=== PATIENT | male | born 1955 | race Caucasian/White ===

== ENCOUNTER 2020-12-07 10:32 | Inpatient (IN) | payer MEDICARE ==
[2020-12-07] MEDS ORDERED: Albuterol/Ipratropium 3.0-0.5 MG/3 ML Neb Soln NEB ONE (11:11)
--- NOTE | 2020-12-07 11:19 | EDM.PDOC ---
<Jorge LangelaFredy madrid Dot - Last Filed: 12/08/20 07:17> ED HPI GENERAL MEDICAL PROBLEM - General Chief Complaint: Respiratory Problem Stated Complaint: SOB Time Seen by Provider: 12/07/20 11:05 - Related Data Allergies Allergy/AdvReac Type Severity Reaction Status Date / Time No Known Allergies Allergy Verified 12/07/20 11:24 Home Meds: Home Meds NK [No Known Home Meds] 12/07/20 [History] Departure - Departure Disposition: Admitted As Inpatient 64 Clinical Impression: Emphysema lung - Discharge Information <Anupama Navarro - Last Filed: 12/08/20 07:21> ED HPI GENERAL MEDICAL PROBLEM - General Source of Information: Reports: Patient, Family History Limitations: Reports: No Limitations - History of Present Illness INITIAL COMMENTS - FREE TEXT/NARRATIVE: 65 year old male with unknown previous medical history due to not doctoring in over 10 years, arrives with complaints of shortness of breath. He reports that for the last "few week" he has had increasing shortness of breath and increasing activity intolerance. Family reports that he has been borrowing inhaler from friend and borrowing oxygen from father. He also notes some bilateral pedal edema and fatigue. Denies chest pain, fever, or recent illness or injury. States that he is a 1 pack a day smoker, and takes no medications daily. He has not had covid vaccines. He arrived with SPO2 saturations in the 70s on RA. Onset: Gradual Duration: Week(s):, Getting Worse Location: Reports: Other (shortness of breath) Severity: Severe Improves with: Reports: Rest Worsens with: Reports: Movement Context: Reports: Activity Associated Symptoms: Reports: No Other Symptoms ED ROS GENERAL - Review of Systems Review Of Systems: See Below Constitutional: Reports: Weakness. Denies: Fever, Chills, Diaphoresis HEENT: Reports: No Symptoms Respiratory: Reports: Shortness of Breath (severe shortness of breath with activity, reports almost no tolerance left, arrived with SPO2 saturations in the 70s on RA.), Wheezing (wheezing heard throughout lung blackman. Inspiratory and expiratory), Cough. Denies: Pleuritic Chest Pain Cardiovascular: Reports: Edema (trace pedal edema present and has developed over the last week- per family. ). Denies: Chest Pain Endocrine: Reports: No Symptoms GI/Abdominal: Denies: Abdominal Pain : Reports: No Symptoms Musculoskeletal: Reports: No Symptoms Skin: Reports: No Symptoms Neurological: Denies: Confusion, Dizziness Psychiatric: Reports: No Symptoms Hematologic/Lymphatic: Reports: No Symptoms Immunologic: Reports: No Symptoms ED EXAM, GENERAL - Physical Exam Exam: See Below Free Text/Narrative:: Christian is resting on cart sitting in the up right position, family is at bedside. Respirations are mildly labored and regular, he is alert and oriented, skin is warm and dry. afebrile. Appears comfortable on 3L via NC at this time. Wheezing heard on auscultation in all lung blackman. Abdomen in flat and non tender. trace edema to bilateral lower extremities. Exam Limited By: No Limitations General Appearance: Alert, Mild Distress Nose: No Blood Throat/Mouth: Normal Lips, Normal Voice, No Airway Compromise Head: Atraumatic Neck: Normal Inspection Respiratory/Chest: Respiratory Distress (mild respiratory distress, arrived with SPO2 sats in the 70s, placed on 3 L NC and now SPO2 saturations are above 94%), Wheezing Cardiovascular: Normal Peripheral Pulses, Regular Rate, Rhythm GI/Abdominal: Soft, Non-Tender (Male) Exam: Deferred Rectal (Males) Exam: Deferred Back Exam: Normal Inspection, Full Range of Motion Extremities: Pedal Edema. No: Leg Pain, Increased Warmth, Redness Neurological: Alert, Oriented, Normal Cognition. No: Confused, Disoriented Psychiatric: Normal Affect Skin Exam: Warm, Dry, Intact. No: Diaphoretic, Rash Course - Vital Signs Text/Narrative:: Duo neb ordered, chest xray, CBC, CMP, Troponin, and D Dimer completed. Covid test sent as well. Patient and family member agree with the plan of care at this time. Last Recorded V/S: Last Vital Signs Temp 35.5 C L 12/08/20 03:00 Pulse 77 12/08/20 03:00 Resp 18 12/08/20 03:00 BP 130/69 12/08/20 03:00 Pulse Ox 94 L 12/08/20 03:00 - Orders/Labs/Meds Orders: Active Orders 24 hr Category Date Time Status RT Aerosol Therapy [RC] ASDIRECTED Care 12/07/20 11:12 Active Sodium Chloride 0.9% [Normal Saline] 1,000 ml Med 12/07/20 13:30 Active IV ASDIRECTED Medication Orders Albuterol/Ipratropium (Albuterol/Ipratropium 3.0-0.5 Mg/3 Ml Neb Soln) 3 ml NEB Q4H [facility] Last Admin: 12/08/20 06:18 Dose: Not Given Documented by: Admin: 12/08/20 00:29 Dose: Not Given Documented by: Admin: 12/07/20 20:03 Dose: 3 ml Documented by: Admin: 12/07/20 18:51 Dose: Not Given Documented by: TOM Amlodipine Besylate (Amlodipine 5 Mg Tab) 5 mg PO DAILY [facility] Sodium Chloride (Normal Saline) 1,000 mls @ 150 mls/hr IV ASDIRECTED [facility] Last Admin: 12/08/20 03:42 Dose: 150 mls/hr Documented by: Infusion: 12/08/20 03:42 Dose: 150 mls/hr Documented by: Admin: 12/07/20 21:21 Dose: 150 mls/hr Documented by: Infusion: 12/07/20 20:24 Dose: 150 mls/hr Documented by: Admin: 12/07/20 13:43 Dose: 150 mls/hr Documented by: PREILOR Lisinopril (Lisinopril 10 Mg Tab) 10 mg PO DAILY [facility] Methylprednisolone Sodium Succinate (Methylprednisolone Sodium Succinate 40 Mg/1 Ml Sdv) 60 mg IVPUSH Q12H [facility] Last Admin: 12/08/20 00:26 Dose: 60 mg Documented by: FAVIAN Labs: Laboratory Tests 12/07/20 12/07/20 12/07/20 Range/Units 11:26 11:26 11:26 WBC 7.4 (4.5-11.0) K/uL RBC 5.08 (4.30-5.90) M/uL Hgb 14.4 (12.0-15.0) g/dL Hct 48.1 (40.0-54.0) % MCV 95 (80-98) fL MCH 28 (27-31) pg MCHC 30 L (32-36) % Plt Count 220 (150-400) K/uL Neut % (Auto) 74.7 H (36-66) % Lymph % (Auto) 14.3 L (24-44) % Twiggs % (Auto) 9.7 H (2-6) % Eos % (Auto) 0.9 L (2-4) % Baso % (Auto) 0.4 (0-1) % D-Dimer, Quantitative 899.37 H (0.0-500.0) ng/mL Sodium 142 (140-148) mmol/L Potassium 4.4 (3.6-5.2) mmol/L Chloride 103 (100-108) mmol/L Carbon Dioxide 37 H (21-32) mmol/L Anion Gap 6.4 (5.0-14.0) mmol/L BUN 13 (7-18) mg/dL Creatinine 0.9 (0.8-1.3) mg/dL Est Cr Clr Drug Dosing 81.76 mL/min Estimated GFR (MDRD) > 60 (>60) Glucose 101 (74-106) mg/dL Calcium 7.8 L (8.5-10.1) mg/dL Total Bilirubin 0.5 (0.2-1.0) mg/dL AST 34 (15-37) U/L ALT 63 (12-78) U/L Alkaline Phosphatase 88 (46-116) U/L Troponin I 0.017 (0.000-0.056) ng/mL Total Protein 5.8 L (6.4-8.2) g/dL Albumin 2.7 L (3.4-5.0) g/dL Globulin 3.1 (2.3-3.5) g/dL Albumin/Globulin Ratio 0.9 L (1.2-2.2) SARS CoV-2 RNA Rapid RIRI 12/07/20 Range/Units 11:37 WBC (4.5-11.0) K/uL RBC (4.30-5.90) M/uL Hgb (12.0-15.0) g/dL Hct (40.0-54.0) % MCV (80-98) fL MCH (27-31) pg MCHC (32-36) % Plt Count (150-400) K/uL Neut % (Auto) (36-66) % Lymph % (Auto) (24-44) % Twiggs % (Auto) (2-6) % Eos % (Auto) (2-4) % Baso % (Auto) (0-1) % D-Dimer, Quantitative (0.0-500.0) ng/mL Sodium (140-148) mmol/L Potassium (3.6-5.2) mmol/L Chloride (100-108) mmol/L Carbon Dioxide (21-32) mmol/L Anion Gap (5.0-14.0) mmol/L BUN (7-18) mg/dL Creatinine (0.8-1.3) mg/dL Est Cr Clr Drug Dosing mL/min Estimated GFR (MDRD) (>60) Glucose (74-106) mg/dL Calcium (8.5-10.1) mg/dL Total Bilirubin (0.2-1.0) mg/dL AST (15-37) U/L ALT (12-78) U/L Alkaline Phosphatase (46-116) U/L Troponin I (0.000-0.056) ng/mL Total Protein (6.4-8.2) g/dL Albumin (3.4-5.0) g/dL Globulin (2.3-3.5) g/dL Albumin/Globulin Ratio (1.2-2.2) SARS CoV-2 RNA Rapid RIRI Negative Meds: Medications Generic Name Dose Route Start Last Admin Trade Name Freq PRN Reason Stop Dose Admin Albuterol/Ipratropium 3 ml 12/07/20 16:30 12/08/20 06:18 Albuterol/Ipratropium 3.0-0.5 Mg/3 Ml Neb Soln NEB Not Given Q4H [facility] Amlodipine Besylate 5 mg 12/08/20 09:00 Amlodipine 5 Mg Tab PO DAILY [facility] Sodium Chloride 1,000 mls @ 150 mls/hr 12/07/20 13:30 12/08/20 03:42 Normal Saline IV 150 mls/hr ASDIRECTED [facility] Administration Lisinopril 10 mg 12/08/20 09:00 Lisinopril 10 Mg Tab PO DAILY [facility] Methylprednisolone Sodium Succinate 60 mg 12/07/20 23:00 12/08/20 00:26 Methylprednisolone Sodium Succinate 40 Mg/1 Ml Sdv IVPUSH 60 mg Q12H [facility] Administration Discontinued Medications Generic Name Dose Route Start Last Admin Trade Name Freq PRN Reason Stop Dose Admin Albuterol/Ipratropium 3 ml 12/07/20 11:11 12/07/20 11:27 Albuterol/Ipratropium 3.0-0.5 Mg/3 Ml Neb Soln NEB 12/07/20 11:12 3 ml ONETIME ONE Administration Formoterol Fumarate 12 mcg 12/07/20 16:15 Formoterol 12 Mcg Inhalant Cap Kit Of 12 INH Q12HR [facility] Methylprednisolone Sodium Succinate 125 mg 12/07/20 13:24 12/07/20 13:44 Methylprednisolone Sodium Succinate 125 Mg/2 Ml Sdv IVPUSH 12/07/20 13:25 125 mg ONETIME ONE Administration Tiotropium Gentry 0 gm 12/07/20 16:15 Tiotropium Gentry 4 Gm Inhalation Russell (2.5mcg/1 Dose; 10 Doses) INH DAILY [facility] - Re-Assessments/Exams Free Text/Narrative Re-Assessment/Exam: 12/07/20 13:29 Due to moderate emphysema noted on chest xray, admission suggested, patient agreed with some coaxing. He is still requiring 3 L NC and does desaturate with activity. Plan for admission with IV Solumedrol at this time. Departure - Departure Time of Disposition: 16:14 Condition: Good - My Orders Last 24 Hours: My Active Orders 12/07/20 11:12 RT Aerosol Therapy [RC] ASDIRECTED - Assessment/Plan Last 24 Hours: My Active Orders 12/07/20 11:12 RT Aerosol Therapy [RC] ASDIRECTED Attestation - Student - Attestation Statement Attestation Statement: I personally performed or re-performed the physical examination and medical decision making. I have verified all student documentation or findings, including history, physical exam and/or medical decision making.
--- NOTE | 2020-12-07 12:52 | CR ---
CHEST: 2 view CLINICAL HISTORY:SOB COMPARISON:None FINDINGS: Lungs are hyperaerated. There are some scattered pleural parenchymal scarring. The heart size, pulmonary vascularity and hilar structures are normal. No infiltrate effusion or pneumothorax is seen. IMPRESSION: No acute cardiopulmonary process. Moderate emphysematous changes
[2020-12-07] MEDS ORDERED: methylPREDNISolone Sodium Succinate 125 MG/2 ML SDV IVPUSH ONE (13:24)
[2020-12-07] MEDS: Sodium Chloride 0.9% 1,000 ML IV SCH ×2 (13:43→21:21)
[2020-12-07] MEDS ORDERED: Formoterol 12 MCG Inhalant Cap Kit of 12 INH SCH (16:15)
[2020-12-07] MEDS ORDERED: Tiotropium Bromide 4 GM Inhalation Spray (2.5mcg/1 dose; 10 doses) INH SCH (16:15)
--- NOTE | 2020-12-07 18:12 | PCM.HP.2 ---
H&P History of Present Illness - General Date of Service: 12/07/20 Admit Problem/Dx: Admission Diagnosis/Problem Admission Diagnosis/Problem COPD, Severe chronic obstructive pulmonary disease Source of Information: Patient History Limitations: Reports: No Limitations - History of Present Illness Initial Comments - Free Text/Narative: Mr. Ojeda is a 65-year-old white male who presents with shortness of breath. He states that over the past couple of years he has had increasing shortness of breath however over the past couple of weeks it has worsened significantly. He states that he has a cough regularly especially when he lays down. He states that he has to use 3 pillows at night in order to breathe. He also states that he has frequent nighttime awakenings due to dyspnea. He is a 1 pack/day smoker. He states that he had been using his girlfriends inhalers and his girlfriend's fathers oxygen at home due to the dyspnea. He does not like to go to the doctors and he has not been to a doctor in well over a decade. He is not cu rrently on any medications as he is not been to a doctor in a very long time. In the ED he was noted to be hypertensive with a blood pressure initially of 162/105. On room air his oxygen saturations were in the 70s. He was not tachypneic and had a regular rate and rhythm. A chest x-ray was done that showed hyperinflated lungs with scattered pleural-parenchymal scarring. He was given treatment with duo nebs, IV steroids, and started on supplemental oxygen. He will be admitted for supplemental oxygen, IV steroids, and nebulizer treatments. Because he does not enjoy being in a medical setting I did let him know that he will likely be here for about 2 to 3 days. I explained to him that I would be starting him on inhalers for COPD and that he would likely need oxygen when he leaves. I did state that this oxygen may be temporary as this is the first time he has ever been treated for COPD. I did explain to him that he will need follow-up with a computed tomography scanner operator including pulmonary function tests and he agreed to this. - Related Data Allergies/Adverse Reactions: Allergies Allergy/AdvReac Type Severity Reaction Status Date / Time No Known Allergies Allergy Verified 12/07/20 11:24 Home Medications: Home Meds NK [No Known Home Meds] 12/07/20 [History] Past Medical History Musculoskeletal History: Reports: Arthritis, Neck Pain, Chronic - Infectious Disease History Infectious Disease History: Reports: Chicken Pox, Measles, Mumps Social & Family History - Tobacco Use Tobacco Use Status *Q: Current Every Day Tobacco User Years of Tobacco use: 50 Packs/Tins Daily: 1 - Caffeine Use Caffeine Use: Reports: Energy Drinks - Recreational Drug Use Recreational Drug Use: Yes Recreational Drug Type: Reports: Marijuana/Hashish Recreational Drug Use Frequency: Weekly H&P Review of Systems - Review of Systems: Review Of Systems: See Below General: Reports: Weakness. Denies: Fever, Chills, Weight Loss HEENT: Reports: Headaches. Denies: Sinus Congestion, Visual Changes (Related to chronic neck pain) Pulmonary: Reports: Shortness of Breath, Wheezing, Cough, Sputum Cardiovascular: Reports: Dyspnea on Exertion, Orthopnea, PND. Denies: Chest Pain, Palpitations, Edema, Syncope Gastrointestinal: Reports: No Symptoms. Denies: Abdominal Pain, Anorexia, Constipation, Diarrhea Genitourinary: Reports: No Symptoms. Denies: Dysuria, Frequency, Pain Musculoskeletal: Reports: Neck Pain (Chronic) Skin: Reports: No Symptoms Psychiatric: Reports: No Symptoms. Denies: Confusion Neurological: Reports: No Symptoms, Headache. Denies: Confusion, Dizziness Hematologic/Lymphatic: Reports: No Symptoms Exam - Exam Exam: See Below - Vital Signs Vital Signs: Last Vital Signs Temp 97.9 F 12/07/20 11:22 Pulse 88 12/07/20 13:49 Resp 16 12/07/20 13:49 BP 164/102 H 12/07/20 13:49 Pulse Ox 93 L 12/07/20 13:49 Weight: 160 lb - Exam Quality Assessment: Supplemental Oxygen General: Alert, Oriented, Cooperative, Mild Distress HEENT: PERRLA, EOMI, Hearing Intact, Mucosa Moist & Bessie, Nares Patent Neck: Supple, Trachea Midline Lungs: Wheezing (In bilateral lung blakcman) Cardiovascular: Regular Rate, Regular Rhythm GI/Abdominal Exam: Normal Bowel Sounds, Soft, Non-Tender, No Distention Back Exam: Normal Inspection, Other (He does have a 1 to 1/2 cm sebaceous cyst on the center upper back) Extremities: Normal Inspection, Non-Tender, No Pedal Edema Skin: Warm, Dry, Intact Neuro Extensive - Mental Status: Alert, Oriented x3, Normal Mood/Affect, Normal Cognition, Memory Intact Psychiatric: Alert, Normal Affect, Normal Mood - Patient Data Lab Results Last 24 hrs: Laboratory Results - last 24 hr 12/07/20 12/07/20 12/07/20 Range/Units 11:26 11:26 11:26 WBC 7.4 (4.5-11.0) K/uL RBC 5.08 (4.30-5.90) M/uL Hgb 14.4 (12.0-15.0) g/dL Hct 48.1 (40.0-54.0) % MCV 95 (80-98) fL MCH 28 (27-31) pg MCHC 30 L (32-36) % Plt Count 220 (150-400) K/uL Neut % (Auto) 74.7 H (36-66) % Lymph % (Auto) 14.3 L (24-44) % Gove % (Auto) 9.7 H (2-6) % Eos % (Auto) 0.9 L (2-4) % Baso % (Auto) 0.4 (0-1) % D-Dimer, Quantitative 899.37 H (0.0-500.0) ng/mL Sodium 142 (140-148) mmol/L Potassium 4.4 (3.6-5.2) mmol/L Chloride 103 (100-108) mmol/L Carbon Dioxide 37 H (21-32) mmol/L Anion Gap 6.4 (5.0-14.0) mmol/L BUN 13 (7-18) mg/dL Creatinine 0.9 (0.8-1.3) mg/dL Est Cr Clr Drug Dosing 81.76 mL/min Estimated GFR (MDRD) > 60 (>60) Glucose 101 (74-106) mg/dL Calcium 7.8 L (8.5-10.1) mg/dL Total Bilirubin 0.5 (0.2-1.0) mg/dL AST 34 (15-37) U/L ALT 63 (12-78) U/L Alkaline Phosphatase 88 (46-116) U/L Troponin I 0.017 (0.000-0.056) ng/mL Total Protein 5.8 L (6.4-8.2) g/dL Albumin 2.7 L (3.4-5.0) g/dL Globulin 3.1 (2.3-3.5) g/dL Albumin/Globulin Ratio 0.9 L (1.2-2.2) SARS CoV-2 RNA Rapid RIRI 12/07/20 Range/Units 11:37 WBC (4.5-11.0) K/uL RBC (4.30-5.90) M/uL Hgb (12.0-15.0) g/dL Hct (40.0-54.0) % MCV (80-98) fL MCH (27-31) pg MCHC (32-36) % Plt Count (150-400) K/uL Neut % (Auto) (36-66) % Lymph % (Auto) (24-44) % Gove % (Auto) (2-6) % Eos % (Auto) (2-4) % Baso % (Auto) (0-1) % D-Dimer, Quantitative (0.0-500.0) ng/mL Sodium (140-148) mmol/L Potassium (3.6-5.2) mmol/L Chloride (100-108) mmol/L Carbon Dioxide (21-32) mmol/L Anion Gap (5.0-14.0) mmol/L BUN (7-18) mg/dL Creatinine (0.8-1.3) mg/dL Est Cr Clr Drug Dosing mL/min Estimated GFR (MDRD) (>60) Glucose (74-106) mg/dL Calcium (8.5-10.1) mg/dL Total Bilirubin (0.2-1.0) mg/dL AST (15-37) U/L ALT (12-78) U/L Alkaline Phosphatase (46-116) U/L Troponin I (0.000-0.056) ng/mL Total Protein (6.4-8.2) g/dL Albumin (3.4-5.0) g/dL Globulin (2.3-3.5) g/dL Albumin/Globulin Ratio (1.2-2.2) SARS CoV-2 RNA Rapid RIRI Negative Result Diagrams: 12/07/20 11:26 12/07/20 11:26 Sepsis Event Note - Evaluation Sepsis Screening Result: No Definite Risk - Focused Exam Vital Signs: Vital Signs Temp Pulse Resp BP Pulse Ox 12/07/20 13:49 88 16 164/102 H 93 L 12/07/20 12:20 88 18 162/105 H 95 12/07/20 11:22 97.9 F 94 21 H 164/100 H 93 L 12/07/20 11:13 88 15 162/105 H 96 12/07/20 10:51 93 L 12/07/20 10:49 97.9 F 94 21 H 164/100 H 70 L - Problem List (1) Severe chronic obstructive pulmonary disease SNOMED Code(s): 803817052 ICD Code: J44.9 - CHRONIC OBSTRUCTIVE PULMONARY DISEASE, UNSPECIFIED Status: Acute Current Visit: Yes (2) Hypertension SNOMED Code(s): 60007792 ICD Code: I10 - ESSENTIAL (PRIMARY) HYPERTENSION Status: Acute Current Visit: Yes Problem List Initiated/Reviewed/Updated: Yes Orders Last 24hrs: Active Orders 24 hr Category Date Time Status Patient Status [ADT] Routine ADT 12/07/20 15:59 Active Ambulate [RC] QID Care 12/07/20 15:59 Active Oxygen Therapy [RC] PRN Care 12/07/20 15:59 Active Pulse Oximetry [RC] CONTINUOUS Care 12/07/20 16:00 Active RT Aerosol Therapy [RC] ASDIRECTED Care 12/07/20 11:12 Active VTE/DVT Education [RC] Per Unit Routine Care 12/07/20 15:59 Active Vital Signs [RC] Q4H Care 12/07/20 15:59 Active Regular Diet [DIET] Diet 12/07/20 Dinner Active Albuterol/Ipratropium [DuoNeb 3.0-0.5 MG/3 ML] Med 12/07/20 16:30 Active 3 ml NEB Q4H Sodium Chloride 0.9% [Normal Saline] 1,000 ml Med 12/07/20 13:30 Active IV ASDIRECTED Tiotropium BR/Olodaterol HCL [Stiolto Respimat] Med 12/07/20 16:30 Active See Dose Instructions INH DAILY@0700 Sequential Compression Device [OM.PC] Per Unit Routine Oth 12/07/20 16:00 Ordered Resuscitation Status Routine Resus Stat 12/07/20 15:59 Ordered Medication Orders Albuterol/Ipratropium (Albuterol/Ipratropium 3.0-0.5 Mg/3 Ml Neb Soln) 3 ml NEB Q4H [facility] Sodium Chloride (Normal Saline) 1,000 mls @ 150 mls/hr IV ASDIRECTED [facility] Last Admin: 12/07/20 13:43 Dose: 150 mls/hr Documented by: PREILOR Assessment/Plan Comment:: Worsening COPD- -Requiring supplemental oxygen, titrate to an SPO2 of 94% -DuoNebs every 4 scheduled, will change to as needed when he is no longer whe ezing -Solu-Medrol 60 mg, will taper as improvement is shown -Start Stiolto -Will likely continue on Stiolto outpatient as long is inhalers covered by insurance -Will need follow-up with pulmonology for pulmonary function tests -I also anticipate that he may need home oxygen though probably temporarily until he is on adequate medication Hypertensionon admission BP 162/105 -I suspect a component of pulmonary hypertension so I do not want to initiate treatment with a diuretic -He is 40/35 above goal blood pressure, I would like his blood pressure to eventually be less than 120/80 -Will begin amlodipine 5 mg, and lisinopril 10 mg Tobacco abuse -I have counseled him on quitting tobacco, will continue Plan: We will treat with duo nebs and steroids until wheezing has subsided. We will have to adjust blood pressure medications as indicated. Will need to set up with a PCP outpatient and have follow-up with a computed tomography scanner operator for pulmonary function test. VTE prophylaxis: Not indicated (not elderly, no history of DVT/PE, not critically ill, no history of stroke, no CHF, no active cancer, no acute respiratory failure, no recent surgery or trauma, no obesity, no hormonal therapy), will encourage mobility GI prophylaxis: Not indicated Diet: Regular Admission status: Patient will be admitted to inpatient status, expect at least a 2 night hospital stay for evaluation and management of problems outlined above. At the time of admission I do not reasonably expect the evaluation and management of this problem will require more than a 96-hour hospital stay. Yelena Vela DO - Mortality Measure Prognosis:: Good
[2020-12-07] MEDS: Albuterol/Ipratropium 3.0-0.5 MG/3 ML Neb Soln NEB SCH ×2 (18:51→20:03)
[2020-12-07] MEDS: Tiotropium BR/Olodaterol HCL 4 GM Inhalation Spray 2.5mcg/1 dose; 10 doses INH SCH (19:23)
[2020-12-07] MEDS ORDERED: methylPREDNISolone Sodium Succinate 40 MG/1 ML SDV IVPUSH SCH (23:00)
[2020-12-08] MEDS: Albuterol/Ipratropium 3.0-0.5 MG/3 ML Neb Soln NEB SCH ×3 (00:29→07:53)
[2020-12-08] MEDS: Sodium Chloride 0.9% 1,000 ML IV SCH (03:42)
[2020-12-08] MEDS: Tiotropium BR/Olodaterol HCL 4 GM Inhalation Spray 2.5mcg/1 dose; 10 doses INH SCH (07:53)
[2020-12-08] MEDS ORDERED: amLODIPine 5 MG Tab PO SCH (09:00)
[2020-12-08] MEDS ORDERED: Lisinopril 10 MG Tab PO SCH (09:00)
[2020-12-08] MEDS ORDERED: methylPREDNISolone Sodium Succinate 125 MG/2 ML SDV IVPUSH SCH (11:00)
[2020-12-08] MEDS ORDERED: Albuterol/Ipratropium 3.0-0.5 MG/3 ML Neb Soln NEB SCH (11:00)
--- NOTE | 2020-12-09 18:55 | PCM.DCSUM1 ---
Discharge Summary - Hospital Course Free Text/Narrative:: is a 65-year-old white male who presented for shortness of breath. He had been having shortness of breath that had been worsening over the past couple of weeks. He states that he has had breathing troubles for years and is a 1 pack/day smoker. In the ED he had been noted to be hypertensive and hypoxic requiring supplemental oxygen chest x-ray revealed that he had emphysematous lungs. He had not been to a doctor in over a decade at the time of admission. He stated that he did not like being in the medical setting. While here he was treated with duo nebs, IV steroids, supplemental oxygen, and inhalers. By the morning after admission he was feeling better and wanted to get prescriptions to be treated outpatient. He agreed to get a PCP which was set up with Dr. Majano. He will also need follow-up with a public service officer for pulmonary function tests and he was counseled on this. He did still have some wheezing in the lungs on the day of discharge. He stated that he would continue to take nebulizer treatments, and used home oxygen until he was reevaluated by a public service officer. Diagnosis: Stroke: No Modified [place] Scale: Slight Disable;Unable to Carry Out Prev Act.Able to Look After Affairs Modified [place] Scale Score: 2 - Discharge Data Discharge Date: 12/08/20 Discharge Disposition: Home, Self-Care 01 Condition: Good - Referral to Home Health Date of Face to Face Encounter: 12/08/20 Primary Care Physician: PCP None - Discharge Diagnosis/Problem(s) (1) Severe chronic obstructive pulmonary disease SNOMED Code(s): 542684544 ICD Code: J44.9 - CHRONIC OBSTRUCTIVE PULMONARY DISEASE, UNSPECIFIED Status: Acute (2) Hypertension SNOMED Code(s): 15154308 ICD Code: I10 - ESSENTIAL (PRIMARY) HYPERTENSION Status: Acute - Discharge Plan Prescriptions/Med Rec: methylPREDNISolone [Medrol Dose Pack] 4 mg PO DAILY #1 dospk amLODIPine [Norvasc] 5 mg PO DAILY 30 Days #30 tablet lisinopriL [Prinivil] 10 mg PO DAILY 30 Days #30 tablet Albuterol [Proventil Neb Soln] 0.63 mg .XX Q4HRRT PRN #1 box PRN Reason: Shortness Of Breath Tiotropium Br/Olodaterol HCl [Stiolto Respimat Inhal [place]] 2 puff IH DAILY 30 Days #1 mist.inhal Albuterol [Ventolin HFA] 2 puff .XX Q4HR PRN 30 Days #1 ea PRN Reason: Shortness Of Breath Home Medications: Home Meds Albuterol [Proventil Neb Soln] 0.63 mg .XX Q4HRRT PRN #1 box 12/08/20 [Rx] Albuterol [Ventolin HFA] 2 puff .XX Q4HR PRN 30 Days #1 ea 12/08/20 [Rx] Tiotropium Br/Olodaterol HCl [Stiolto Respimat Inhal [place]] 2 puff IH DAILY 30 Days #1 mist.inhal 12/08/20 [Rx] amLODIPine [Norvasc] 5 mg PO DAILY 30 Days #30 tablet 12/08/20 [Rx] lisinopriL [Prinivil] 10 mg PO DAILY 30 Days #30 tablet 12/08/20 [Rx] methylPREDNISolone [Medrol Dose Pack] 4 mg PO DAILY #1 dospk 12/08/20 [Rx] Oxygen Therapy Mode: Nasal Cannula Oxygen Flow Rate (L/min): 2 Maintain SPO2% less than: 100 Maintain SpO2% greater than: 90 Patient Handouts: Chronic Obstructive Pulmonary Disease, [id number] Forms: ED Department Discharge Referrals: PCP,None [Primary Care Provider] - (schedule appointment with Dr Majano in 5-7 days for follow up. The clinic will call to schedule the appointment, if no call by Thursday, call the clinic @ [phone] to schedule) - Discharge Summary/Plan Comment DC Time >30 min.: Yes - General Info Date of Service: 12/08/20 Admission Dx/Problem (Free Text: Admission Diagnosis/Problem Admission Diagnosis/Problem COPD, Severe chronic obstructive pulmonary disease Functional Status: Reports: Tolerating Diet, Ambulating, Urinating - Review of Systems General: Reports: No Symptoms, Appetite HEENT: Reports: No Symptoms Pulmonary: Reports: Cough, Wheezing Cardiovascular: Reports: No Symptoms Gastrointestinal: Reports: No Symptoms Genitourinary: Reports: No Symptoms Musculoskeletal: Reports: No Symptoms Skin: Reports: No Symptoms Neurological: Reports: No Symptoms Psychiatric: Reports: No Symptoms - Patient Data Vitals - Most Recent: Last Vital Signs Temp 97.5 F 12/08/20 07:27 Pulse 88 12/08/20 10:43 Resp 18 12/08/20 10:15 BP 138/86 12/08/20 10:15 Pulse Ox 94 L 12/08/20 10:15 Weight - Most Recent: 160 lb Med Orders - Current: Current Medications Discontinued Medications Albuterol/Ipratropium (Albuterol/Ipratropium 3.0-0.5 Mg/3 Ml Neb Soln) 3 ml NEB ONETIME ONE Stop: 12/07/20 11:12 Last Admin: 12/07/20 11:27 Dose: 3 ml Documented by: Albuterol/Ipratropium (Albuterol/Ipratropium 3.0-0.5 Mg/3 Ml Neb Soln) 3 ml NEB Q4H COUNT INCLUDES THE [facility] Last Admin: 12/08/20 07:53 Dose: 3 ml Documented by: Albuterol/Ipratropium (Albuterol/Ipratropium 3.0-0.5 Mg/3 Ml Neb Soln) 3 ml NEB Q4H COUNT INCLUDES THE [facility] Last Admin: 12/08/20 10:43 Dose: 3 ml Documented by: Amlodipine Besylate (Amlodipine 5 Mg Tab) 5 mg PO DAILY COUNT INCLUDES THE [facility] Last Admin: 12/08/20 08:52 Dose: 5 mg Documented by: Formoterol Fumarate (Formoterol 12 Mcg Inhalant Cap Kit Of 12) 12 mcg INH Q12HR COUNT INCLUDES THE [facility] Sodium Chloride (Normal Saline) 1,000 mls @ 150 mls/hr IV ASDIRECTED COUNT INCLUDES THE [facility] Last Admin: 12/08/20 03:42 Dose: 150 mls/hr Documented by: Lisinopril (Lisinopril 10 Mg Tab) 10 mg PO DAILY COUNT INCLUDES THE [facility] Last Admin: 12/08/20 08:52 Dose: 10 mg Documented by: Methylprednisolone Sodium Succinate (Methylprednisolone Sodium Succinate 125 Mg/2 Ml Sdv) 125 mg IVPUSH ONETIME ONE Stop: 12/07/20 13:25 Last Admin: 12/07/20 13:44 Dose: 125 mg Documented by: Methylprednisolone Sodium Succinate (Methylprednisolone Sodium Succinate 40 Mg/1 Ml Sdv) 60 mg IVPUSH Q12H COUNT INCLUDES THE [facility] Last Admin: 12/08/20 00:26 Dose: 60 mg Documented by: Methylprednisolone Sodium Succinate (Methylprednisolone Sodium Succinate 125 Mg/2 Ml Sdv) 60 mg IVPUSH Q12H COUNT INCLUDES THE [facility] Last Admin: 12/08/20 12:14 Dose: 60 mg Documented by: Tiotropium [place] (Tiotropium [place] 4 Gm Inhalation [place] (2.5mcg/1 Dose; 10 Doses)) 0 gm INH DAILY WALE - Exam Quality Assessment: Reports: Supplemental Oxygen General: Reports: Alert, Oriented, Cooperative, No Acute Distress HEENT: Reports: Pupils Equal, EOMI, Mucous Membr. Moist/[place] Neck: Reports: Supple, Trachea Midline Lungs: Reports: Clear to Auscultation, Normal Respiratory Effort Cardiovascular: Reports: Regular Rate, Regular Rhythm GI/Abdominal Exam: Normal Bowel Sounds, Soft, Non-Tender, No Distention Back Exam: Reports: Normal Inspection Extremities: Normal Inspection, Non-Tender, No Pedal Edema Skin: Reports: Warm, Dry, Intact Neurological: Reports: No New Focal Deficit Psy/Mental Status: Reports: Alert, Normal Affect, Normal Mood
== END 2020-12-08 12:20 | disposition home or self-care (01) | DRG 192 ==
LOC: JP.ED 10:32 → JP.MS 15:59
PROVIDERS: ADMIT Internal Medicine; ATTEND Internal Medicine
DX: J43.9 Emphysema, unspecified (principal); I10 Essential (primary) hypertension; F17.210 Nicotine dependence, cigarettes, uncomplicated; Z20.822 Contact with and (suspected) exposure to COVID-19; M54.2 Cervicalgia; G89.29 Other chronic pain; M19.90 Unspecified osteoarthritis, unspecified site
CPT/HCPCS: 36415; 71046 ×2; 80053; 84484; 85025; 85379; 94640 ×2; J2930; J7030; U0002; 80048; 85027; 94762; 96374; 99285-25; A9270-GY; J2920; J7620-GY